=== PATIENT | male | born 1985 | race Caucasian/White ===

== ENCOUNTER 2016-10-12 15:37 | Emergency (ER) | payer SELFPAY ==
[~2016-10-12] VITALS: Ht 170.2 cm; Wt 86.0 kg
[2016-10-12 15:43] VITALS: Ht 170.2 cm; Wt 86.0 kg
--- NOTE | 2016-10-12 16:24 | ERD ---
ER Documentation Chief Complaint Date/Time DATE: 10/12/16 TIME: 16:19 Chief Complaint Complains of left leg pain x 4 days HPI Patient is a 31-year-old male who presents to the emergency department for cast placement. Patient states 4 days ago he fell off a ladder and landed on his left ankle. Patient has discharge paperwork from [facility] which shows that patient has a left ankle fracture. Patient was placed in a splint. Patient is ambulate with crutches. Patient states he is here today to have a cast placed given that he was unable to go to the [facility] facility. Patient does report having pain medication at home. Patient denies any new falls or trauma. ROS All systems reviewed and are negative except as per history of present illness. Allergies Allergies: Coded Allergies: No Known Allergy (Unverified , 10/12/16) PMhx/Soc Medical and Surgical Hx: pt denies Medical Hx, pt denies Surgical Hx Hx Alcohol Use: No Hx Substance Use: No Hx Tobacco Use: No Smoking Status: Never smoker Physical Exam Vitals Vital Signs Date Time Temp Pulse Resp B/P Pulse Ox O2 Delivery O2 Flow Rate FiO2 10/12/16 15:43 98.8 95 20 156/82 97 Physical Exam GENERAL: Well-developed, well-nourished male. Appears in no acute distress. HEAD: Normocephalic, atraumatic. EYES: Pupils are equally reactive bilaterally. EOMs grossly intact. No conjunctival erythema. . NECK: Supple. No meningismus. Normal range of motion of the neck. EXTREMITIES: Equal pulses bilaterally. No peripheral clubbing, cyanosis or edema. NEUROLOGIC: Alert and oriented. Moving all four extremities without any difficulty. Normal speech. SKIN: Normal color. Warm and dry. No rashes or lesions. LEFT LE: Placed in short leg splint. Splint was attempted to be removed, however patient eloped prior to splint removal for further examination. Procedures/MDM MEDICAL DECISION MAKING: Patient is a 31-year-old male who presents to the ED for cast placement. Patient sustained left ankle fracture 4 days ago after he fell from a ladder. Patient has paperwork which shows he was seen at [facility]. Vital signs were reviewed. Patient is afebrile. Patient was not hypoxic. Patient was noted to be in a short leg splint of the left lower extremity as well as ambulating with crutches. I attempted to remove the patient's short leg splint to examine the patient's leg however he declined and wished to leave given we were unable to provide him with a hard cast at this facility. Patient was urged to go to [facility] or [facility]. Patient eloped prior to discharge paperwork. Patient was stable prior to elopement and throughout the ED course. Departure Diagnosis: Primary Impression: Ankle fracture, left Encounter type: initial encounter Fracture type: closed Qualified Code: S82.892A - Ankle fracture, left, closed, initial encounter Condition: Stable Patient Instructions: Treating Ankle Fractures Referrals: [facility] YOU HAVE RECEIVED A MEDICAL SCREENING EXAM AND THE RESULTS INDICATE THAT YOU DO NOT HAVE A CONDITION THAT REQUIRES URGENT TREATMENT IN THE EMERGENCY DEPARTMENT. FURTHER EVALUATION AND TREATMENT OF YOUR CONDITION CAN WAIT UNTIL YOU ARE SEEN IN YOUR DOCTORS OFFICE WITHIN THE NEXT 1-2 DAYS. IT IS YOUR RESPONSIBILITY TO MAKE AN APPOINTMENT FOR FOLOW-UP CARE. IF YOU HAVE A PRIMARY DOCTOR --you should call your primary doctor and schedule an appointment IF YOU DO NOT HAVE A PRIMARY DOCTOR YOU CAN CALL OUR PHYSICIAN REFERRAL HOTLINE AT IF YOU CAN NOT AFFORD TO SEE A PHYSICIAN YOU CAN CHOSE FROM THE FOLLOWING [facility] [address] [facility]. [facility] [address] [facility]. [facility] [address] [facility] [facility] [address] [facility] [facility] [address] [facility]. [facility]. [address] [facility]. [facility] YOU HAVE RECEIVED A MEDICAL SCREENING EXAM AND THE RESULTS INDICATE THAT YOU DO NOT HAVE A CONDITION THAT REQUIRES URGENT TREATMENT IN THE EMERGENCY DEPARTMENT. FURTHER EVALUATION AND TREATMENT OF YOUR CONDITION CAN WAIT UNTIL YOU ARE SEEN IN YOUR DOCTORS OFFICE WITHIN THE NEXT 1-2 DAYS. IT IS YOUR RESPONSIBILITY TO MAKE AN APPOINTMENT FOR FOLOW-UP CARE. IF YOU HAVE A PRIMARY DOCTOR --you should call your primary doctor and schedule and appointment IF YOU DO NOT HAVE A PRIMARY DOCTOR YOU CAN CALL OUR PHYSICIAN REFERRAL HOTLINE AT . IF YOU CAN NOT AFFORD TO SEE A PHYSICIAN YOU CAN CHOSE FROM THE FOLLOWING [facility] INSTITUTIONS: [facility] [address] [place] [address] [facility] [address] [place] [address] [facility] + [facility] [address] [place] [address] [facility] 7 a.m.- 11 p.m. Every Day of the Week NO APPOINTMENT OR AUTHORIZATION NEEDED [facility] Hours: Mon-Fri 9:00 AM - 5:00 PM Additional Instructions: Call your primary care doctor TOMORROW for an appointment during the next 1-2 days.See the doctor sooner or return here if your condition worsens before your appointment time. Go To [facility] or [facility] for further management of your fracture. BARRERA SOLO PA-C Oct 12, 2016 16:24
== END 2016-10-12 16:20 | disposition left against medical advice (07) ==
LOC: FTE 15:37
DX: S82.892A Other fracture of left lower leg, initial encounter for closed fracture (principal); W11.XXXA Fall on and from ladder, initial encounter; Y92.9 Unspecified place or not applicable
CPT/HCPCS: 99282